=== PATIENT | female | born 1965 | race Caucasian/White ===

== ENCOUNTER 2016-03-30 13:10 | Emergency (ER) | payer BC, OTHER ==
[~2016-03-30] VITALS: Ht 157.5 cm; Wt 65.0 kg
[~2016-03-30 13:10] MED LIST: IBUP800T23 PO
[2016-03-30 13:13] VITALS: BP 121/76; PULSE 75; RESP 16; TEMP 98; O2SAT 100
--- NOTE | 2016-03-30 13:37 | PD ---
HPI Chief Complaint: Cold / Flu Symptoms Time Seen by Provider: 13:34 Travel History International Travel<30 days: No Contact w/Intl Traveler<30days: No Traveled to known affect area: No History of Present Illness HPI Patient is a 50-year-old female with a history of asthma and COPD who quit smoking 2.5 years ago presenting with ENT/URI symptoms for 6 days. She states it started with a sore throat, nasal congestion and slight dry cough. Cough has progressively gotten worse and she has now had hoarseness along with wheezing and dyspnea. She denies chest pain but says she has some chest tightness. She does not have any inhalers that she has not had any flares for 3 years. She denies any exertional chest discomfort or pleuritic chest discomfort. She denies any sputum production but states she feels like she has congestion in her upper chest and throat. She denies difficulty swallowing and stridor. She denies hemoptysis. She denies pain or swelling in her legs. She denies fever and myalgias. OTC cough and decongestant medicines of helped minimally. PFSH Past Medical History Hx Anticoagulant Therapy: No Asthma: Yes Diminished Hearing: No Respiratory: Yes (ASTHMA) Immunizations Current: Yes Tetanus Vaccination: > 5 Years Influenza Vaccination: No ?: Not Past Surgical History Abdominal Surgery: Yes (lso uterine supension lap) Other Surgery: Yes (bladder tack ) Social History Alcohol Use: No Tobacco Use: No Substance Use: No Allergies-Medications (Allergen,Severity, Reaction): Coded Allergies: No Known Allergies (Unverified , 03/30/16) Reported Meds & Prescriptions Reported Meds & Active Scripts Active Proair Hfa 8.5 GM Inh (Albuterol Sulfate) 90 Mcg/Act Aer 2 Puff INH Q4-6H PRN 108 mcg/actuation Prednisone 20 Mg Tab 40 Mg PO DAILY 5 Days Tessalon Perles (Benzonatate) 100 Mg Cap 100-200 Mg PO TID PRN Azithromycin 250 Mg Tab 250 Mg PO DIRECTED Take 2 tabs (500 mg) on day 1 then 1 tab daily x 4 days. Review of Systems Except as stated in HPI: all other systems reviewed are Neg Physical Exam Narrative GENERAL: Well-developed and well-nourished adult female in no acute distress. SKIN: Warm and dry. Good turgor without tenting. HEAD: Normocephalic and atraumatic. EYES: PERRL bilaterally, 5mm. EOMI bilaterally. No injection or icterus present. No proptosis. Lids without edema or erythema. ENT: Bilateral ear canals are non-edematous/non-erythematous without otorrhea. Bilateral TMs have intact landmarks and without distortion, perforation, air- fluid level or erythema. Nasal mucosa pink and moist without discharge, septum intact and midline. Buccal mucosa pink and moist. Oropharynx free of erythema, tonsillar hypertrophy, masses, swelling, asymmetry and exudates. Uvula midline and airway patent. NECK: Supple, no meningeal signs. Trachea midline, no JVD. No cervical or facial lymphadenopathy. CARDIOVASCULAR: Regular rate and rhythm without murmurs, rubs, clicks or gallops. Radial and posterior tibial pulses 2+ bilaterally. No pedal edema. Negative bilateral Homans sign. RESPIRATORY: Mild diffuse end expiratory wheezing without rhonchi or rales. No distress or use of accessory muscles. Speaks in full sentences. No stridor, tripoding or drooling. MUSCULOSKELETAL: No gait disturbances. Patient freely moving all four extremities spontaneously. Extremities without clubbing, cyanosis, or edema. No obvious deformities. NEUROLOGIC: CN II-XII grossly intact. Awake and alert. Motor grossly within normal limits. Normal speech. PSYCHIATRIC: Appropriate mood and affect; insight and judgment normal. Data Data Last Documented VS Vital Signs Date Time Temp Pulse Resp B/P Pulse Ox O2 Delivery O2 Flow Rate FiO2 03/30/16 13:23 100 Room Air 03/30/16 13:13 98.0 75 16 121/76 Orders Chest, Pa & Lat (03/30/16 13:33) Methylprednisolone So Succ Inj (Solumedr (03/30/16 13:45) Albuterol-Ipratropium Neb (Duoneb Neb) (03/30/16 13:45) MDM Medical Decision Making Medical Screen Exam Complete: Yes Emergency Medical Condition: Yes Interpretation(s) Last 24 hours Impressions Chest X-Ray 03/30/16 1333 Signed Impressions: Service Date/Time: Wednesday, March 30, 2016 14:19 - CONCLUSION: No acute disease. Andrew Smyth MD Differential Diagnosis COPD exacerbation versus bronchitis versus viral syndrome versus pneumonia Narrative Course Patient is a 50-year-old female history of COPD and asthma who stopped smoking 2.5 years ago presenting with ENT/URI symptoms for 6 days. Nonproductive cough with wheezing. She is wheezing on exam. She is afebrile and nontoxic- appearing with no increased work of breathing. No evidence of bacterial foci on exam. Patient was given solu Medrol and DuoNeb in order chest x-ray which showed no acute cardiopulmonary disease. She has improved symptoms and lungs are clear to auscultation on reexam. Patient will be treated for acute bronchitis/COPD exacerbation and recommend follow-up with a PCP.See discharge paperwork for further instructions. The plan was discussed with the patient who acknowledged their understanding and agreement. Reinforced the follow-up with primary care is critically important. Patient instructed on emergent conditions that should prompt return to ED. Diagnosis Primary Impression: Acute bronchitis Qualified Code: J20.9 - Acute bronchitis, unspecified organism Additional Impression: COPD with exacerbation Patient Instructions: Acute Bronchitis (ED), Emphysema (ED), General Instructions Additional Instructions: Take medication as prescribed OTC Mucinex as needed OTC Tylenol or Ibuprofen for fever and discomfort Drink lots of fluid to help clear mucous/drainage and stay hydrated Follow up with PCP in 2 days Return to the ED for any acute worsening of symptoms Med/Other Pt SpecificInfo: Prescription(s) given Scripts Albuterol 8.5 GM Inh (Proair Hfa 8.5 GM Inh)90 Mcg/Act Aer2 Puff INH Q4-6H PRN ( SHORTNESS OF BREATH) #1 INHALER 108 mcg/actuation Prov:Phan Packer MD 03/30/16 Prednisone 20 Mg Tab40 Mg PO DAILY 5 Days Prov:Phan Packer MD 03/30/16 Benzonatate (Tessalon Perles)100 Mg [id number] Mg PO TID PRN (COUGH) #20 CAP Prov:Phan Packer MD 03/30/16 Azithromycin 250 Mg [id number] Mg PO DIRECTED #6 TAB Take 2 tabs (500 mg) on day 1 then 1 tab daily x 4 days. Prov:Phan Packer MD 03/30/16 Disposition: 01 DISCHARGE HOME Condition: Stable Javed Cruz III Mar 30, 2016 13:37
[2016-03-30] MEDS ORDERED: methylPREDNISolone SOD SUCC 125 MG/2 ML VIAL IM ONE (13:45)
[2016-03-30] MEDS: RESP: ALBUTEROL 2.5 MG/IPRATROPIUM 0.5 MG NEB (SCH) INH ×2 (13:46→13:47)
--- NOTE | 2016-03-30 14:46 | RADHPO ---
EXAM DATE/TIME: 03/30/2016 14:19 [facility] COMPARISON: No previous studies available for comparison. INDICATIONS : Patient states cough and congestion. MEDICAL HISTORY : None. SURGICAL HISTORY : None. ENCOUNTER: Initial ACUITY: 3 days PAIN SCORE: 2/10 LOCATION: Bilateral chest FINDINGS: PA and lateral views of the chest demonstrate the lungs to be symmetrically aerated without evidence of mass, infiltrate or effusion. The cardiomediastinal contours are unremarkable. Osseous structure s are intact. CONCLUSION: No acute disease. Andrew Smyth MD on March 30, 2016 at 14:44 Board Certified Radiologist. This report was verified electronically.
[2016-03-30] MEDS ORDERED: AZIT250T3 PO (14:55)
[2016-03-30] MEDS ORDERED: BENZ100 PO (14:55)
[2016-03-30] MEDS ORDERED: PRED20 PO (14:55)
[2016-03-30] MEDS ORDERED: ALBUAER3 INH (14:55)
== END 2016-03-30 15:16 | disposition home or self-care (01) ==
LOC: PHEFT 13:10
DX: J20.9 Acute bronchitis, unspecified (principal); J44.1 Chronic obstructive pulmonary disease with (acute) exacerbation; J45.909 Unspecified asthma, uncomplicated; Z87.891 Personal history of nicotine dependence
CPT/HCPCS: 71020; 94640; 94664; 96372; 99283; J2930

== ENCOUNTER 2016-08-21 12:41 | Emergency (ER) | payer BC ==
[~2016-08-21] VITALS: Ht 157.5 cm; Wt 68.0 kg
[~2016-08-21 12:41] MED LIST changes: +ALBUAER3 INH; +AZIT250T3 PO; +BENZ100 PO; -IBUP800T23 PO; +PRED20 PO
[2016-08-21 13:06] VITALS: BP 107/88; PULSE 104; RESP 18; TEMP 97.9; O2SAT 99
[2016-08-21 13:10] VITALS: RESP 18; O2SAT 99
[2016-08-21] MEDS ORDERED: REST30CA PO (13:12)
[2016-08-21] MEDS ORDERED: LORazepam 2 MG/ML VIAL IV PUSH ONE (13:15)
[2016-08-21] MEDS ORDERED: SODIUM CHLORIDE 0.9% FLUSH 10 ML FLUSH IVF PRN (13:15)
[2016-08-21] MEDS ORDERED: SODIUM CHLOR 0.9% 1000 ML INJ 1,000 ML IV ONE ×2 (13:15)
--- NOTE | 2016-08-21 13:18 | PD ---
HPI Chief Complaint: Numbness/Tingling Time Seen by Provider: 13:04 Travel History International Travel<30 days: No Contact w/Intl Traveler<30days: No History of Present Illness HPI Patient is a 51-year-old female who presents to emergency room with complaints. Patient reports that she was at the beach today with [place] family, reports that she decided to pack up early as her mother had to take her medications. Patient reports that she is now, she began to have increased cramping in both her hands, reports that she then felt like she could not open or close or hands and felt as if they were "locked." Reports that she then felt a tingling sensation up her arms b/l and began to feel sob. Reports that she began to breath heavily and reports "I just feel like I can't catch my breath." She decided to come to the ER for evaluation. Patient denies any fever/chills. Reports that she thought that she was well hydrated as she was drinking alot of water today. Denies sensation of lightheadedness and dizzyness. Denies chest pain at this time. No fever/chills. No other c/o. PFSH Past Medical History Hx Anticoagulant Therapy: No Asthma: Yes Diminished Hearing: No Respiratory: Yes (ASTHMA) Immunizations Current: Yes Past Surgical History Abdominal Surgery: Yes (lso uterine supension lap) Other Surgery: Yes (bladder tack ) Social History Alcohol Use: No Tobacco Use: No Substance Use: No Allergies-Medications (Allergen,Severity, Reaction): Coded Allergies: No Known Allergies (Unverified , 08/21/16) Reported Meds & Prescriptions Reported Meds & Active Scripts Active Proair Hfa 8.5 GM Inh (Albuterol Sulfate) 90 Mcg/Act Aer 2 Puff INH Q4-6H PRN 108 mcg/actuation Reported Restoril (Temazepam) 30 Mg Cap 30 Mg PO HS PRN Review of Systems General / Constitutional: No: Fever Eyes: No: Visual changes HENT: No: Headaches, Lightheadedness, Sore Throat Cardiovascular: No: Chest Pain or Discomfort Respiratory: Positive: Shortness of Breath Gastrointestinal: No: Abdominal Pain Genitourinary: No: Dysuria Musculoskeletal: Positive: Cramping (cramping to b/l hands), No: Pain Skin: No Rash Neurologic: No: Weakness Psychiatric: Positive: Anxiety, No: Depression Endocrine: No: Polydipsia Hematologic/Lymphatic: No: Easy Bruising Physical Exam Narrative GENERAL: moderate distress SKIN: Focused skin assessment warm/dry. HEAD: Atraumatic. Normocephalic. EYES: Pupils equal and round. No scleral icterus. No injection or drainage. ENT: No nasal bleeding or discharge. Mucous membranes pink and moist. NECK: Trachea midline. No JVD. CARDIOVASCULAR: Regular rate and rhythm. No murmur appreciated. RESPIRATORY: No accessory muscle use. Clear to auscultation. Breath sounds equal bilaterally. GASTROINTESTINAL: Abdomen soft, non-tender, nondistended. Hepatic and splenic margins not palpable. MUSCULOSKELETAL: No obvious deformities. No clubbing. No cyanosis. No edema. B /L upper extremities - normal ROM to extremities, no signs of fracture or infection, pulses intact, neurovascularly intact NEUROLOGICAL: Awake and alert. No obvious cranial nerve deficits. Motor grossly within normal limits. Normal speech. CN 2-12 grossly intact with no neurovascular compromise PSYCHIATRIC: Patient extremely anxious on exam Data Data Last Documented VS Vital Signs Date Time Temp Pulse Resp B/P Pulse Ox O2 Delivery O2 Flow Rate FiO2 08/21/16 14:00 84 16 100/77 99 Room Air 08/21/16 13:06 97.9 Orders Complete Blood Count With Diff (08/21/16 13:04) Comprehensive Metabolic Panel (08/21/16 13:04) Act Partial Throm Time (Ptt) (08/21/16 13:04) Prothrombin Time / Inr (Pt) (08/21/16 13:04) Magnesium (Mg) (08/21/16 13:04) Urinalysis - C+S If Indicated (08/21/16 13:04) Iv Access Insert/Monitor (08/21/16 13:04) Electrocardiogram (08/21/16 13:04) Ecg Monitoring (08/21/16 13:04) Oximetry (08/21/16 13:04) Chest, Single Ap (08/21/16 13:04) Sodium Chloride 0.9% Flush (Ns Flush) (08/21/16 13:15) Ed Urine Pregnancytest Poc (08/21/16 13:04) Creatine Kinase (Cpk) (08/21/16 13:04) Sodium Chlor 0.9% 1000 Ml Inj (Ns 1000 M (08/21/16 13:15) Sodium Chlor 0.9% 1000 Ml Inj (Ns 1000 M (08/21/16 13:15) Lorazepam Inj (Ativan Inj) (08/21/16 13:15) Labs Laboratory Tests Test 08/21/16 08/21/16 13:30 13:59 White Blood Count 9.1 TH/MM3 Red Blood Count 5.04 MIL/MM3 Hemoglobin 11.9 GM/DL Hematocrit 36.8 % Mean Corpuscular Volume 73.1 FL Mean Corpuscular Hemoglobin 23.7 PG Mean Corpuscular Hemoglobin 32.3 % Concent Red Cell Distribution Width 17.1 % Platelet Count 404 TH/MM3 Mean Platelet Volume 8.8 FL Neutrophils (%) (Auto) 64.8 % Lymphocytes (%) (Auto) 19.4 % Monocytes (%) (Auto) 10.6 % Eosinophils (%) (Auto) 1.8 % Basophils (%) (Auto) 3.4 % Neutrophils # (Auto) 5.8 TH/MM3 Lymphocytes # (Auto) 1.8 TH/MM3 Monocytes # (Auto) 1.0 TH/MM3 Eosinophils # (Auto) 0.2 TH/MM3 Basophils # (Auto) 0.3 TH/MM3 CBC Comment AUTO DIFF Differential Comment AUTO DIFF CONFIRMED Prothrombin Time 11.1 SEC Prothromb Time International 1.0 RATIO Ratio Activated Partial 21.0 SEC Thromboplast Time Sodium Level 144 MEQ/L Potassium Level 3.9 MEQ/L Chloride Level 110 MEQ/L Carbon Dioxide Level 21.5 MEQ/L Anion Gap 13 MEQ/L Blood Urea Nitrogen 16 MG/DL Creatinine 0.71 MG/DL Estimat Glomerular Filtration 87 ML/MIN Rate Random Glucose 93 MG/DL Calcium Level 9.1 MG/DL Magnesium Level 1.9 MG/DL Total Bilirubin 0.3 MG/DL Aspartate Amino Transf 70 U/L (AST/SGOT) Alanine Aminotransferase 112 U/L (ALT/SGPT) Alkaline Phosphatase 145 U/L Total Creatine Kinase 140 U/L Total Protein 6.9 GM/DL Albumin 3.4 GM/DL Urine Collection Type CLEAN CATCH Urine Color YELLOW Urine Turbidity CLEAR Urine pH 5.5 Urine Specific [employer] 1.022 Urine Protein NEG mg/dL Urine Glucose (UA) NEG mg/dL Urine Ketones TRACE mg/dL Urine Occult Blood NEG Urine Nitrite NEG Urine Bilirubin NEG Urine Leukocyte Esterase NEG Urine Squamous Epithelial 0-5 /hpf Cells Microscopic Urinalysis Comment CULT NOT INDICATED MDM Medical Decision Making Medical Screen Exam Complete: Yes Emergency Medical Condition: Yes Interpretation(s) EKG at 1313: NSR at 89bpm, qt/qtc: 358/405, no acute st or t wave changes Differential Diagnosis Differential includes electrolyte abnormality, anxiety reaction, pneumothorax, acs, arrhythmia, muscle spasms Narrative Course 51 year old female who presents to ER with complaint of acute onset of tightness with tingling sensation to her b/l hands with acute onset of sob and hyperventilation. Symptoms began prior to coming to ER. On evaluation, patient is hyperventilating, plan to give a dose of ativan as she is extremely anxious. Prior to coming to the ER, she was unable to open or close her hands as they felt "locked in." Patient now able to ROM her hands - pulses intact, neurovascular intact. Patient had spent the whole morning at the beach - concern for possible dehydration/electrolyte abnormality. Basic blood work obtained. Will give IVF and monitor patient. EKG: NSR at 89bpm, no acute st or t wave changes. Plan to monitor on backer up Vital Signs Date Time Temp Pulse Resp B/P Pulse Ox O2 Delivery O2 Flow Rate FiO2 08/21/16 14:00 84 16 100/77 99 Room Air 08/21/16 13:13 100 18 99 Room Air 08/21/16 13:10 18 99 Room Air 08/21/16 13:06 97.9 104 18 107/88 99 Laboratory Tests Test 08/21/16 08/21/16 13:30 13:59 White Blood Count 9.1 TH/MM3 (4.0-11.0) Red Blood Count 5.04 MIL/MM3 (4.00-5.30) Hemoglobin 11.9 GM/DL (11.6-15.3) Hematocrit 36.8 % (35.0-46.0) Mean Corpuscular Volume 73.1 FL (80.0-100.0) Mean Corpuscular Hemoglobin 23.7 PG (27.0-34.0) Mean Corpuscular Hemoglobin 32.3 % Concent (32.0-36.0) Red Cell Distribution Width 17.1 % (11.6-17.2) Platelet Count 404 TH/MM3 (150-450) Mean Platelet Volume 8.8 FL (7.0-11.0) Neutrophils (%) (Auto) 64.8 % (16.0-70.0) Lymphocytes (%) (Auto) 19.4 % (9.0-44.0) Monocytes (%) (Auto) 10.6 % (0.0-8.0) Eosinophils (%) (Auto) 1.8 % (0.0-4.0) Basophils (%) (Auto) 3.4 % (0.0-2.0) Neutrophils # (Auto) 5.8 TH/MM3 (1.8-7.7) Lymphocytes # (Auto) 1.8 TH/MM3 (1.0-4.8) Monocytes # (Auto) 1.0 TH/MM3 (0-0.9) Eosinophils # (Auto) 0.2 TH/MM3 (0-0.4) Basophils # (Auto) 0.3 TH/MM3 (0-0.2) CBC Comment AUTO DIFF Differential Comment AUTO DIFF CONFIRMED Prothrombin Time 11.1 SEC (9.8-11.6) Prothromb Time International 1.0 RATIO Ratio Activated Partial 21.0 SEC Thromboplast Time (24.3-30.1) Sodium Level 144 MEQ/L (136-145) Potassium Level 3.9 MEQ/L (3.5-5.1) Chloride Level 110 MEQ/L (98-107) Carbon Dioxide Level 21.5 MEQ/L (21.0-32.0) Anion Gap 13 MEQ/L (5-15) Blood Urea Nitrogen 16 MG/DL (7-18) Creatinine 0.71 MG/DL (0.50-1.00) Estimat Glomerular Filtration 87 ML/MIN (>89) Rate Random Glucose 93 MG/DL (74-106) Calcium Level 9.1 MG/DL (8.5-10.1) Magnesium Level 1.9 MG/DL (1.5-2.5) Total Bilirubin 0.3 MG/DL (0.2-1.0) Aspartate Amino Transf 70 U/L (15-37) (AST/SGOT) Alanine Aminotransferase 112 U/L (10-53) (ALT/SGPT) Alkaline Phosphatase 145 U/L (45-117) Total Creatine Kinase 140 U/L (26-192) Total Protein 6.9 GM/DL (6.4-8.2) Albumin 3.4 GM/DL (3.4-5.0) Urine Collection Type CLEAN CATCH Urine Color YELLOW (YELLW/STRAW) Urine Turbidity CLEAR (CLEAR) Urine pH 5.5 (5.0-8.5) Urine Specific [employer] 1.022 (1.002-1.035) Urine Protein NEG mg/dL (NEG-TRACE) Urine Glucose (UA) NEG mg/dL (NEG) Urine Ketones TRACE mg/dL (NEG) Urine Occult Blood NEG (NEG) Urine Nitrite NEG (NEG) Urine Bilirubin NEG (NEG) Urine Leukocyte Esterase NEG (NEG) Urine Squamous Epithelial 0-5 /hpf (0-5) Cells Microscopic Urinalysis Comment CULT NOT INDICATED Last Impressions Chest X-Ray 08/21/16 1304 Signed Impressions: Service Date/Time: Sunday, August 21, 2016 13:19 - CONCLUSION: No acute disease. Tereso Mckee MD Patient reevaluated, patient reports that she is feeling much better at this time. I reviewed all labs and all studies with patient in detail. Patient with trace ketones in urine, cbc: wnl, bmp: elevated ast/alt/alk phos, patient with most likely dehydration. I encouraged patient to drink plenty of fluids, she has complete resolution of symptoms at this time. Plan to discharge patient with follow-up with her primary care doctor and return to emergency room as needed. Diagnosis Primary Impression: Dehydration Additional Impressions: Anxiety reaction Transaminitis Patient Instructions: General Instructions Additional Instructions: Please give patient a copy of her lab work at discharge Please drink plenty of fluids Please return to ER as needed Please return to ER if symptoms worsen or progress Please follow up with your primary care doctor, please bring your lab work with you to your doctor's appointment for follow up on all findings Disposition: 01 DISCHARGE HOME Condition: Stable AnthonyDesi Anna DO Aug 21, 2016 13:18
--- NOTE | 2016-08-21 13:36 | RADRPT ---
EXAM DATE/TIME: 08/21/2016 13:19 [facility] COMPARISON: No previous studies available for comparison. INDICATIONS : Short of breath, headaches. MEDICAL HISTORY : None. SURGICAL HISTORY : None. ENCOUNTER: Initial ACUITY: 1 day PAIN SCORE: 0/10 LOCATION: Bilateral chest FINDINGS: A single view of the chest demonstrates the lungs to be symmetrically aerated without evidence of mas s, infiltrate or effusion. The cardiomediastinal contours are unremarkable. Osseous structures are intact. CONCLUSION: No acute disease. Tereso Mckee MD on August 21, 2016 at 13:33 Board Certified Radiologist. This report was verified electronically.
[2016-08-21 13:46] LABS: CHLORIDE 110 MEQ/L (98-107); POTASSIUM 3.9 MEQ/L (3.5-5.1); SODIUM (NA) 144 MEQ/L (136-145)
[2016-08-21 13:49] LABS: AUTOMATED NEUTROPHIL # 5.8 TH/MM3 (1.8-7.7); BASOPHIL # 0.3 TH/MM3 (0-0.2); BASOPHIL % 3.4 % (0.0-2.0); EOSINOPHIL # 0.2 TH/MM3 (0-0.4); EOSINOPHIL % 1.8 % (0.0-4.0); HEMATOCRIT 36.8 % (35.0-46.0); LYMPH % 19.4 % (9.0-44.0); LYMPHOCYTE # 1.8 TH/MM3 (1.0-4.8); MEAN CELL VOLUME 73.1 FL (80.0-100.0); MEAN CORPUSCULAR HEMOGLOBIN 23.7 PG (27.0-34.0); MEAN CORPUSCULAR HGB CONC 32.3 % (32.0-36.0); MONO % 10.6 % (0.0-8.0); NEUT % 64.8 % (16.0-70.0); PLATELET COUNT 404 TH/MM3 (150-450); RED BLOOD COUNT 5.04 MIL/MM3 (4.00-5.30); RED CELL DISTRIBUTION WIDTH 17.1 % (11.6-17.2); WHITE BLOOD COUNT 9.1 TH/MM3 (4.0-11.0)
[2016-08-21 13:50] LABS: ANION GAP 13 MEQ/L (5-15); BICARBONATE 21.5 MEQ/L (21.0-32.0); BLOOD UREA NITROGEN 16 MG/DL (7-18); HEMO FLAGS AUTO DIFF; MAGNESIUM 1.9 MG/DL (1.5-2.5); PROTHROMBIN TIME - PATIENT 11.1 SEC (9.8-11.6)
[2016-08-21 13:53] LABS: ALT (GPT) 112 U/L (10-53); AST (GOT) 70 U/L (15-37); GLOMERULAR FILTRATION RATE 87 ML/MIN (>89)
[2016-08-21 13:54] LABS: TOTAL BILIRUBIN ADULT 0.3 MG/DL (0.2-1.0)
[2016-08-21 13:56] LABS: ALKALINE PHOSPHATASE 145 U/L (45-117); CREATINE KINASE 140 U/L (26-192)
[2016-08-21 14:00] VITALS: BP 100/77; PULSE 84; RESP 16; O2SAT 99
[2016-08-21 14:16] LABS: BLOOD, URINE NEG (NEG); GLUCOSE,URINE NEG (NEG); KETONE, URINE TRACE mg/dL (NEG); NITRITE,URINE NEG (NEG); PH, URINE 5.5 (5.0-8.5)
[2016-08-21 14:46] LABS: COMMENT (UR) CULT NOT INDICATED; CULTURE IF INDICATED CULT NOT INDICATED; METHOD OF COLLECTION CLEAN CATCH; SQUAMOUS EPITHELIAL CELL URINE 0-5 /hpf (0-5); URINE COLOR YELLOW (YELLW/STRAW)
[2016-08-21 14:52] LABS: SCAN/DIFF AUTO DIFF CONFIRMED
[2016-08-21 15:05] VITALS: BP 100/67; PULSE 87; RESP 16; O2SAT 99
--- NOTE | 2016-08-22 10:03 | EKG ---
Date Performed: 08/21/2016 Time Performed: 13:13:03 PTAGE: 51 years EKG: Sinus rhythm NORMAL ECG NO PREVIOUS TRACING DOCTOR: Fabiano Perez Interpretating Date/Time 08/22/2016 10:02:15
== END 2016-08-21 15:57 | disposition home or self-care (01) ==
LOC: PHED 12:41
DX: E86.0 Dehydration (principal); F41.1 Generalized anxiety disorder; R74.0 Nonspecific elevation of levels of transaminase and lactic acid dehydrogenase [LDH]
CPT/HCPCS: 71010; 80053; 81001; 82550; 83735; 84703; 85025; 85610; 85730; 93005; 96361; 96374; 99285; J2060; J7030